=== PATIENT | female | born 1995 | race Caucasian/White ===

== ENCOUNTER 2023-05-20 11:24 | Outpatient (CLI) | payer OTHER ==
[2023-05-20 12:11] LABS: BASOPHILS # (AUTO) 0.1 10^3/uL (0.0-0.1); BASOPHILS % (AUTO) 0.6 %; EOSINOPHILS % (AUTO) 0.4 %; HCT - HEMATOCRIT 38.3 % (37.0-47.0); HGB - HEMOGLOBIN 12.8 g/dL (12.0-16.0); LYMPHOCYTES # (AUTO) 2.1 10^3/uL (1.5-3.5); MEAN CORPUSCULAR HEMOGLOBIN 30.3 pg (27.0-31.0); MEAN CORPUSCULAR HGB CONC 33.4 g/dL (32.0-36.0); MEAN CORPUSCULAR VOLUME 90.8 fL (81.0-99.0); MEAN PLATELET VOLUME 9.4 fL (7.9-10.8); MONOCYTES # (AUTO) 0.3 10^3/uL (0.0-1.0); MONOCYTES % (AUTO) 3.8 %; NEUTROPHILS # (AUTO) 5.8 10^3/uL (1.5-6.6); NEUTROPHILS % (AUTO) 70.1 %; PLT - PLATELET COUNT 289 10^3/uL (130-450); RED BLOOD COUNT 4.22 10^6/uL (4.20-5.40); RED CELL DISTRIBUTION WIDTH 11.7 % (12.0-15.0); WHITE BLOOD COUNT 8.3 x10^3/uL (4.8-10.8)
[2023-05-21 04:19] LABS: HBsAG SCREEN Negative (Negative)
[2023-05-21 06:12] LABS: RPR Non Reactive (Non Reactive)
[2023-05-21 08:10] LABS: HCV AB Non Reactive (Non Reactive)
[2023-05-21 09:10] LABS: HIV SCREEN 4TH GENERATION Non Reactive (Non Reactive)
[2023-05-21 12:09] LABS: VARICELLA-ZOSTER AB IGG 813 index (Immune >165)
== END 2023-05-20 11:25 | disposition home or self-care (01) ==
LOC: LAB 11:24
PROVIDERS: ATTEND Nurse Practitioner Obstetrics & Gynecology
DX: Z36.89 Encounter for other specified antenatal screening (principal)
CPT/HCPCS: 36415; 85025; 86592; 86762; 86787; 86803; 86850; 86900; 86901; 87340; 87389

== ENCOUNTER 2023-08-06 16:51 | Outpatient (CLI) | payer OTHER ==
--- NOTE | 2023-08-07 16:18 | Ultrasound Report ---
PROCEDURE: OB Anatomy Scan INDICATIONS: SUPERVISION OF OUTSIDE/PRIOR DATING DATA: Last menstrual period (LMP): 03/20/2023. LMP-based estimated date of delivery (ZOHAIB): 12/25/2023. First dating scan (date and location): 05/20/2023. Estimated date of delivery (ZOHAIB) from first dating scan: 12/28/2023. The below data below was generated using the working ZOHAIB of 12/25/2023 TECHNIQUE: Ultrasound of the gravid uterus was performed and recorded. COMPARISON: None. FINDINGS: General: A single live intrauterine gestation is present. Presentation: Variable Placenta: Placental position is posterior without previa. Amniotic fluid index: 10.2 cm, within normal limits for gestational age. heart rate: 152 beats per minute. Maternal cervical canal: 7.9 cm long; normal length is 2.5 cm or more. biometrics: Biparietal diameter: 4.37 cm, 19 week 2 day, 23.7 percentile Head circumference: 17.5 cm, 20 week 0 day, 49.9 percentile Abdominal circumference: 16.5 cm, 21 week 4 day, 91.7 percentile Femur length: 3.1 cm, 19 week 4 day, 32.1 percentile Estimated gestational age by working dates: not applicable. Composite gestational age by current ultrasound: 19 week 5 day Estimated weight and percentile: 362.3 g, 83.7 percentile Measurement variability in biometric dating: +/- 10 days from 12-20 weeks gestation, +/- 2 weeks from 20-30 weeks gestation, +/- 3 weeks at 30 weeks gestation or more. Anatomic survey: Neuro: Ventricles are non-dilated at less than 10 mm. Cisterna magna is normal at 3-11 mm. Cerebel lum is normal in size and morphology. Nuchal skin fold: Normal at less than 6 mm between 14-20 weeks gestational age. Face: Nose and lips, facial profile are normal. Spine: No evidence for spina bifida. Heart: 4-chambered heart is present, with normal ventricular outflow tracts. Diaphragm: Diaphragm is intact. Stomach: Left-sided stomach is present. Kidneys: No hydronephrosis. Normal is less than 5 mm in 2nd trimester, less than 7 mm in 3rd trimester. Cord: 3-vessel cord has orthotopic insertion. Bladder: Normal in size. Extremities: All 4 extremities identified. Other: Not applicable. IMPRESSION: Single live intrauterine consistent with 19 week 5 day gestation by current ultrasound Reviewed by: Saulo Valente MD on 08/07/2023 3:16 PM KAREL Approved by: Saulo Valente MD on 08/07/2023 3:16 PM KAREL Station ID: [id number]
== END 2023-08-06 16:52 | disposition home or self-care (01) ==
LOC: DI 16:51
PROVIDERS: ATTEND Nurse Practitioner Obstetrics & Gynecology
DX: Z34.92 Encounter for supervision of normal pregnancy, unspecified, second trimester (principal)

== ENCOUNTER 2023-09-24 08:13 | Outpatient (CLI) | payer OTHER ==
[2023-09-24 09:33] LABS: HGB - HEMOGLOBIN 12.3 g/dL (12.0-16.0); MEAN CORPUSCULAR HEMOGLOBIN 30.8 pg (27.0-31.0); MEAN CORPUSCULAR HGB CONC 33.2 g/dL (32.0-36.0); MEAN CORPUSCULAR VOLUME 92.7 fL (81.0-99.0); MEAN PLATELET VOLUME 9.2 fL (7.9-10.8); RED BLOOD COUNT 3.99 10^6/uL (4.20-5.40); RED CELL DISTRIBUTION WIDTH 12.3 % (12.0-15.0); WHITE BLOOD COUNT 9.3 x10^3/uL (4.8-10.8)
== END 2023-09-24 08:14 | disposition home or self-care (01) ==
LOC: LAB 08:13
PROVIDERS: ATTEND Nurse Practitioner Obstetrics & Gynecology
DX: Z36.9 Encounter for antenatal screening, unspecified (principal)
CPT/HCPCS: 36415; 82950; 85027

== ENCOUNTER 2023-12-25 06:18 | Outpatient (CLI) | payer OTHER ==
[2023-12-25 06:46] VITALS: BP 126/82
--- NOTE | 2023-12-25 09:33 | PROVIDER PROGRESS NOTE ---
- HPI Chief Complaint: Labor Check Current : Current EDU 12/25/23 Gestation 40 Weeks and 0 Days 2 Para 1 Vital Signs Temperature 97.7 F 12/25/23 06:25 Heart Rate 85 12/25/23 06:25 Respiratory Rate 16 12/25/23 06:25 Blood Pressure 126/82 H 12/25/23 06:25 Temperature 97.7 F 12/25/23 06:31 Heart Rate 85 12/25/23 06:25 Respiratory Rate 16 12/25/23 06:25 Blood Pressure 126/82 H 12/25/23 06:25 O2 Saturation If not protocol: Oxygen Flow, liters/minute - Exam 3cm/ 50% - Procedures NST Procedure: NST Procedure Start Date 12/25/23 Start Time 06:26 Stop Time 07:03 Vibroacoustic Stimulation Used No Patient States Movement Yes: NST was done on noc shift, pt agrees with above. Here for R/O labor. - Plan Plan: 28 yo presented to L&D at 40+0 weeks gestation for labor check. She had started quita regularity in the this morning at 0100 and came into L&D approximately 0630. Cervical exam essentially unchanged from last exam in clinic (previously 3cm/50%), quita every 3-7 minutes, 40-70 seconds. Discussed management options. She preferred to ambulate and reassess for any changes in 1 hour. At the one hour anabella, she felt that her contractions hadn't increased in intensity or frequency and she preferred to labor more at home. Return precautions reviewed.
== END 2023-12-25 07:45 | disposition home or self-care (01) ==
LOC: WFO 06:18 → FBP 06:21 → WFO 07:45
PROVIDERS: ATTEND Nurse Practitioner Obstetrics & Gynecology
DX: O48.0 Post-term pregnancy (principal); Z3A.40 40 weeks gestation of pregnancy
CPT/HCPCS: 59025; 99213

== ENCOUNTER 2023-12-25 11:59 | Inpatient (IN) | payer OTHER ==
[2023-12-25] MEDS ORDERED: SODIUM CHLORIDE FLUSH 0.9% 10 ML SYRINGE IVP PRN (12:15)
[2023-12-25] MEDS ORDERED: TERBUTALINE 1 MG/ML VIAL SUBQ PRN (12:15)
[2023-12-25] MEDS ORDERED: miSOPROStoL 200 MCG TABLET PR PRN (12:15)
[2023-12-25] MEDS ORDERED: lidocaine 1% 20 ML MDV ID PRN (12:15)
[2023-12-25] MEDS ORDERED: OXYTOCIN 10 UNIT/ML VIAL IM PRN (12:15)
[2023-12-25] MEDS ORDERED: METHYLERGONOVINE 0.2 MG/ML VIAL IM PRN (12:15)
[2023-12-25] MEDS ORDERED: TRANEXAMIC ACID IN NACL 1,000 MG/100 ML BAG IV PRN (12:15)
[2023-12-25] MEDS ORDERED: miSOPROStoL 200 MCG TABLET BC PRN (12:15)
[2023-12-25] MEDS ORDERED: CARBOPROST TROMETHAMINE 250 MCG/ML VIAL IM PRN (12:15)
--- NOTE | 2023-12-25 12:24 | HISTORY & PHYSICAL EXAMINATION ---
Admit History - Visit Reason Visit Reason: Contractions - : 2 Parity: 1 Premature: 0 Ectopic: 1 : 0 Care: positive: [facility] Risk/History: positive: None Complications This : positive: None - Mother's Labs GBS: positive: Group B Step Negative - Other Maternal History Other Maternal History: HPI: This 28 yo @ 40+0 weeks by LMP and confirmed by 8+5 week ultrasound presented to [facility] for labor triage. She was evaluated on LD approximately 4 hours ago and her cervical exam was essentially unchanged from clinic a few days ago. Her contractions started to get stronger about 0100. Upon her return to [facility] this afternoon, her cervix was 4/70/-2 and vertex with intact membranes. We reviewed management options at length and patient desires admission and expectant management. She has been a patient of [facility] for the duration of her which has remained uncomplicated. No headache, visual changes or right upper quadrant abdominal pain. Denies significant N/V. Denies urinary urgency or dysuria. In the event of an emergency, accepts the administration of blood products. LMP: 03/20/2023 ZOHAIB by LMP: 12/25/2023 05/20/2023/ @ 8+5 C/W dates Final ZOHAIB: 12/25/2023 Serial exams agree ROS: All other symptoms reviewed and were negative except per HPI. Immunization history: Has received COVID vaccine: x 2. Has not received influenza vaccine (Feb - August). Prior history of a blood transfusion? No. 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 SAB x0. Last pap 02/2023 WNL, no hx abnormal. Denies history of gonorrhea, chlamydia, genital herpes, oral herpes or any other STI. Sexual partner does NOT have HSV (oral or genital). Medical Hx: no significant Surgical Hx: none Social Hx: Monogamous with male partner. Stopped drinking alcohol due to . Denies current use of tobacco, marijuana or other recreational drugs. Reports that she is safe in current relationship. Family Hx: Denies family history of congenital anomalies, Cystic Fibrosis or chromosomal abnormalities. Allergies: NKDA Medications: vitamin Objective: Pre- BMI: 23 Course: Blood Type: A Positive Antibody Screen Negative Rubella Immune Treponema/RPR Non-Reactive Hep B Surface Ag Non-Reactive Hep C Virus Ab Non-Reactive HIV-1/HIV-2 Screen Non-Reactive Varicella AB Screen Immune Gonorrhea: NOT DETECTED Chlamydia: NOT DETECTED Group B Strep Negative Physical exam: Normocephalic, atraumatic Heart RRR w/o M/G/R Lungs CTAB Abdomen gravid, soft, nontender. EFW 3700 FHR baseline 130-140, moderate variability, + accelerations, no decelerations Contractions palpate moderate every 2-5 minutes with soft resting tone SVE 4/70/-2, vertex, membranes intact Bilateral LE's no edema Mood is good. Assessment: 28 yo @ 40 weeks gestation by sure LMP and 8+5 wk U/S Early labor FHR 130-140 Cat 1 GBS NEG Plan: Admit to [facility] for expectant management Intermittent heart rate auscultation, transition to continuos monitoring as indicated. Jacuzzi PRN. Nitrous oxide PRN. Epidural PRN Maternal Request. Anticipate . Patient verbally consents to my participation in her care in my role as a student nurse healthcare manager. LUIZ Balbuena, Student Nurse Urban Forester - NST Procedure NST Procedure Start Time 06:26 Stop Time 07:03 Meds/Allgy - Home Medications Home Medications: Ambulatory Orders Medication Instructions Recorded Confirmed Vit No.129/Iron/Folic 1 tab PO DAILY 12/25/23 12/25/23 [ One Daily Tablet] Physical - Monitoring Heart Rate Baseline: 135 Strip Review: positive: Category I - Presentation Presentation: positive: Vertex - Vaginal Exam Membranes: positive: Membranes intact Dilation (in cm): 4 Effacement (%): 70 Station: positive: -2 - Speculum Exam Speculum Exam Performed: positive: No Plan for Labor - Plan For Labor I expect patient to be DC'd or transferred within 96 hours.: Yes
[2023-12-25 12:29] LABS: BASOPHILS # (AUTO) 0.1 10^3/uL (0.0-0.1); BASOPHILS % (AUTO) 0.3 %; EOSINOPHILS % (AUTO) 0.1 %; HCT - HEMATOCRIT 39.5 % (37.0-47.0); HGB - HEMOGLOBIN 12.9 g/dL (12.0-16.0); LYMPHOCYTES # (AUTO) 1.4 10^3/uL (1.5-3.5); LYMPHOCYTES % (AUTO) 8.9 %; MEAN CORPUSCULAR HEMOGLOBIN 30.3 pg (27.0-31.0); MEAN CORPUSCULAR HGB CONC 32.7 g/dL (32.0-36.0); MEAN CORPUSCULAR VOLUME 92.7 fL (81.0-99.0); MEAN PLATELET VOLUME 10.1 fL (7.9-10.8); MONOCYTES # (AUTO) 0.5 10^3/uL (0.0-1.0); MONOCYTES % (AUTO) 3.5 %; NEUTROPHILS # (AUTO) 13.3 10^3/uL (1.5-6.6); PLT - PLATELET COUNT 219 10^3/uL (130-450); RED BLOOD COUNT 4.26 10^6/uL (4.20-5.40); RED CELL DISTRIBUTION WIDTH 12.9 % (12.0-15.0); WHITE BLOOD COUNT 15.4 x10^3/uL (4.8-10.8)
[2023-12-25] MEDS: ONDANSETRON 4 MG/2 ML VIAL IVP PRN (12:35)
--- NOTE | 2023-12-25 13:40 | PHARMACY PROGRESS NOTE ---
- Best Possible Medication History Admit Date and Time: 12/25/23 1215 Processed by: Pharmacy Medication History completed: Yes Patient Interview: Completed Secondary Source(s): Insurance records (PT STATES NO RX HOME MEDS) As the person ultimately responsible for medication therapy, providers are able to order a medication from an existing home medication list in [facility] via the "Reconcile Routine" prior to Confirmation of that medication by claims support specialist. Such practice is discouraged except when the physician, in their clinical judgment, deems that a medical need exists for a medication without regard to previous use.
[2023-12-25] MEDS: METOCLOPRAMIDE 10 MG/2 ML VIAL IVP PRN (14:34)
[2023-12-25] MEDS: LACTATED RINGERS 1,000 ML IV PRN (14:50)
[2023-12-25] MEDS ORDERED: ROPIVACAINE 0.2% 200 MG/100 ML BAG EP ONE (15:10)
[2023-12-25] MEDS ORDERED: LIDOCAINE 2%-EPI 1:100000 20 ML MDV ONE (15:10)
--- NOTE | 2023-12-25 16:14 | PROVIDER PROGRESS NOTE ---
Labor Progress Note - Uterine Monitoring Uterine Monitoring Mode: positive: External toco Contraction Frequency (min/apart): q2 Contraction Intensity: positive: Strong Uterine Resting Tone: positive: Soft - Monitoring Monitor Mode: positive: External ultrasound Heart Rate Baseline: 150 Accelerations: positive: Present, 15x15 Decelerations: positive: None Strip Review: positive: Category I - Vaginal Exam Dilation (in cm): 8 Effacement (%): 90 Station: -2 Cervical Position: Anterior - Labor Progress Note Labor Progress Note/Additional Text: S: Contractions stronger and closer together. Nitrous gave limited relief. Comfortable after epidural. Her is supportive at the bedside. O: FHR 150, no audible decelerations noted on doppler SVE 8/-2, vertex. A: 28yo @ 40 wks gestation by 8+5 wk U/S Active labor GBS negative P: Discussed management options. Mi desired AROM vs expectant management. AROM, large amount of clear fluid. Maintain epidural for pain management Will encouraged rotation in bed on peanut ball Anticipate . LUIZ Balbuena, Student Nurse Swimming Teacher
--- NOTE | 2023-12-25 16:16 | ANESTHESIA ---
Pre-Anesthesia VS, & Labs - Diagnosis 40/0 weeks, desires labor epidural - Procedure placement of labor epidural Vital Signs: Temp Pulse Resp BP Pulse Ox O2 Flow Rate 36.9 C 99 16 123/82 H 12/25/23 12:20 12/25/23 12:20 12/25/23 12:20 12/25/23 12:20 Height: 5 ft 4 in Weight (kg): 72.575 kg Body Mass Index: 27.4 BMI Classification: Overweight - NPO Last Fluid Intake: currently clears - Is Patient ?: Yes - Lab Results Current Lab Results: Laboratory Tests 12/25/23 12:19: WBC 15.4 H, RBC 4.26, Hgb 12.9, Hct 39.5, MCV 92.7, MCH 30.3, MCHC 32.7, RDW 12.9, Plt Count 219, MPV 10.1, Neut # (Auto) 13.3 H, Lymph # ( Auto) 1.4 L, Cass # (Auto) 0.5, Eos # (Auto) 0.0, Baso # (Auto) 0.1, Absolute Nucleated RBC 0.00, Nucleated RBC % 0.0 12/25/23 12:19: Blood Type A POSITIVE, Antibody Screen NEGATIVE 12/25/23 12:19: TSH 3.03 Lab results reviewed: Yes Fish Bones: 12/25/23 12:19 Home Medications and Allergies Home Medications: Ambulatory Orders Vit No.129/Iron/Folic [ One Daily Tablet] 1 tab PO DAILY 12/25/23 Active Medications Acetaminophen (Acetaminophen 500 Mg Tablet) 1,000 mg PO Q8H PRN PRN Reason: Mild Pain or Fever>38C(100.4F) Carboprost Tromethamine (Carboprost Tromethamine 250 Mcg/Ml Vial) 250 mcg IM .ONCE PRN PRN Reason: Hemorrhage Lactated Ringer's (Lr) 500 mls @ 999 mls/hr IV PRN PRN PRN Reason: maternal or distress Last Admin: 12/25/23 14:50 Dose: 999 mls/hr Oxytocin/Sodium Chloride (Pitocin/Sodium Chloride) 500 mls @ 999 mls/hr IV PRN PRN; Protocol PRN Reason: POST- HEMORR PREVENTION Tranexamic Acid (Tranexamic 1,000 Mg/100ml-Nacl) 1,000 mg in 100 mls @ 600 mls/ hr IV Q30M PRN PRN Reason: EBL >1200mL and within 3hr Lidocaine HCl (Lidocaine 1% 20 Ml Mdv) 20 ml ID .ONCE PRN PRN Reason: PERINEAL REPAIR Stop: 12/28/23 12:15 Methylergonovine Maleate (Methylergonovine 0.2 Mg/Ml Vial) 0.2 mg IM .ONCE PRN PRN Reason: Hemorrhage Metoclopramide HCl (Metoclopramide 10 Mg/2 Ml Vial) 5 mg IVP Q6HR PRN PRN Reason: Nausea / Vomiting Last Admin: 12/25/23 14:34 Dose: 5 mg Misoprostol (Misoprostol 200 Mcg Tablet) 600 mcg BC .ONCE PRN PRN Reason: Hemorrhage Misoprostol (Misoprostol 200 Mcg Tablet) 800 mcg NV .ONCE PRN PRN Reason: Hemorrhage Ondansetron HCl (Ondansetron 4 Mg/2 Ml Vial) 4 mg IVP Q6HR PRN PRN Reason: Nausea / Vomiting Last Admin: 12/25/23 12:35 Dose: 4 mg Oxytocin (Oxytocin 10 Unit/Ml Vial) 10 unit IM .ONCE PRN PRN Reason: Step One if no IV access. Sodium Chloride (Sodium Chloride Flush 0.9% 10 Ml Syringe) 10 ml IVP PRN PRN PRN Reason: NEEDED PER PROVIDER ORDERS Sodium Chloride (Sodium Chloride Flush 0.9% 10 Ml Syringe) 10 ml IVP Q8H MIRIAM Terbutaline Sulfate (Terbutaline 1 Mg/Ml Vial) 0.25 mg SUBQ .ONCE PRN PRN Reason: Tachystole Vit No.129/Iron/Folic [ One Daily Tablet] 1 tab PO DAILY 12/25/23 Anes History & Medical History - Anesthetic History Anesthesia Complications: reports: No previous complications - Medical History Cardiovascular: reports: None Pulmonary: reports: None Gastrointestinal: reports: None Urinary: reports: None Neuro: reports: None Musculoskeletal: reports: None Endocrine/Autoimmune: reports: None Blood Disorders: reports: None Smoking Status: Never smoker Psychosocial: reports: No issues indicated - Obstetrical History : 2 Parity: 1 Events: reports: None Complications: reports: None Exam General: Alert, Oriented x3 Dental: WNL Mouth Openin Fingerbreadth Neck Mobility: Normal Mallampati classification: II Thyromental Distance: 4-6 cm Respiratory: Lungs clear Cardiovascular: Regular rate Plan Anesthesia Type: Epidural Consent for Procedure(s) Verified and Reviewed: Yes Code Status: Attempt Resuscitation ASA classification: 1-Healthy patient Is this case an emergency?: No
[2023-12-25] MEDS ORDERED: ONDANSETRON 4 MG/2 ML VIAL IVP PRN (16:17)
[2023-12-25] MEDS ORDERED: diphenhydrAMINE INJ 50 MG/ML VIAL IVP PRN (16:17)
[2023-12-25] MEDS ORDERED: ROPIVACAINE 0.2% 200 MG/100 ML BAG EP PRN (16:17)
[2023-12-25] MEDS ORDERED: NALBUPHINE 10 MG/ML AMP IVP PRN (16:17)
[2023-12-25] MEDS ORDERED: ePHEDrine 50 MG/ML VIAL IVP PRN (16:18)
[2023-12-25] MEDS: OXYTOCIN/SODIUM CHLORIDE 500 ML IV PRN (18:50)
--- NOTE | 2023-12-25 19:35 | DELIVERY NOTE ---
Delivery Note - Labor Labor: positive: Spontaneous, Augmented by ARM - Infant Delivery Method Delivery Method: positive: Spontaneous vaginal delivery - Presentation Presentation: positive: Vertex, LIANA - left occiput anterior - Nuchal Cord Nuchal Cord: positive: Present, Reduced - Anesthetic Anesthetic Type: - Amniotic Fluid Description Amniotic Fluid Description: positive: Clear - Episiotomy Type Episiotomy Type: positive: None - Laceration Laceration: positive: None - Delivery Outcome Delivery Outcome: positive: Livebirth - Peshtigo Peshtigo: positive: Placed in direct skin contact with mother, Suctioned, Bulb syringe, Stimulated, Withee used Peshtigo sex: positive: Male - Cord Cord: positive: 3 vessels - Placenta Placenta: positive: Intact - Estimated Blood Loss Estimated Blood Loss (in cc): 200 - Post Delivery Events Post Delivery Events: positive: Shoulder dystocia - Delivery Comments (Free Text/Narrative) Delivery Comments (Free Text/Narrative): This 28 -year-old, presented to L&D @ 40 weeks gestation by 8+5 week ultrasound and sure LMP presented on 12/25/2023 @ 1245 in early labor and in good condition. Cervix was 4/70/-2 and Vertex presentation by julián's. GBS negative. Expectant management and AROM for augmentation followed. FHR pattern demonstrated 150 baseline and primarily category 1 prior to second stage. Normal labor course. Epidural placed upon maternal request. AROM occurred @ 1601 (clear fluid). She then progressed to complete/complete and second stage began @ 1630. : After reduction of nuchal cord x2, attempted delivery of the head was unsuccessful, despite gentle traction of the head. Shoulder dystocia was announced and asked for Rogelio position, Superpubic pressure, and attempted rotational maneuvers and removal of posterior shoulder. After assessing the patient and attempting rotational maneuvers, the anterior shoulder had already been rotated out of impaction, but the large body was not delivering with gentle traction. I was able to place my fingers under the posterior axilla and deliver the posterior shoulder with gentle traction. The rest of the body delivered thereafter and was placed on mother's chest where he was stimulated and responded well. Delivery of viable male 12/25/23 @1843. On exam, he had movement of bilateral upper extremities. We discussed the shoulder dystocia with the family. In total 100 seconds elapse for delivery of head to delivery of body including reduction of double nuchal cord and resolution of shoulder dystocia. Apgars 5 & 8 @ 1 & 5 minutes. The umbilical cord was allowed to stop pulsating at which time it was doubly clamped by delivering provider and cut by FOB. 3VC. Cord blood was obtained. Fundal massage and gently cord traction applied for active management of the third stage, placenta delivered spontaneously and intact and appeared normal @ 1850. EBL 200. Placenta was WAS NOT sent to pathology. 30U Pitocin administered via IV for hemostasis and added to the IV fluid and allowed to run freely. Uterine massage was performed until uterus was deemed firm. Inspection of perineum and vagina found intact tissue. No repair. Needle and sponge counts were correct. Uterine fundus firm and there is no excessive bleeding. Tissues well approximated. Family bonding well. Both mother and baby are in stable condition. Patient verbalized consent for my participation in her delivery in my role as Student Nurse Parts Salesman. LUIZ Balbuena, Student Nurse Parts Salesman
[2023-12-25] MEDS: SODIUM CHLORIDE FLUSH 0.9% 10 ML SYRINGE IVP SCH (20:56)
[2023-12-26] MEDS: ACETAMINOPHEN 500 MG TABLET PO PRN (01:11)
[2023-12-26] MEDS: IBUPROFEN 800 MG TABLET PO SCH (01:11)
[2023-12-26] MEDS: HYDROCORTISONE 1% CREAM 28 GM TUBE PR PRN (09:13)
[2023-12-26] MEDS: DOCUSATE SODIUM 100 MG CAPSULE PO SCH (09:13)
[2023-12-26] MEDS: WITCH HAZEL/GLYCERIN 1 PAD TOP PRN (09:14)
--- NOTE | 2023-12-26 09:59 | DISCHARGE SUMMARY ---
Discharge Summary Discharging Provider: LAMBERT Roberto Code Status: Attempt Resuscitation Condition at Discharge: Good Discharge Disposition: 01 Home, Self Care - HOSPITAL COURSE Hospital Course: Date of Admission: 12/25/2023 Date of Discharge: 12/26/2023 Diagnosis on admission: 1. 28 yo @ 40 weeks gestation by sure LMP and confirmed by 8+5 week ultrasound 2. GBS negative Diagnosis on Discharge 1. 28 yo s/p @ 40 weeks gestation viable male . 2. Intact perineum 3. Exclusively Brief History: [facility] who presented on 12/25/2023 with complaints of contractions. She was found to be quita regularly and quickly progressed with only AROM for augmentation. Epidural for pain management. Delivery complicated by 100 second shoulder dystocia. She delivered a viable make infant apgars 5 and 8 at 1 and 5 minutes respectively. EBL 200 ml. intact perineum. weight: 3632g. She has been doing well in her course. She is ambulating and tolerating a regular diet. She is urinating without difficulty and her lochia is normal. Her pain is well controlled without narcotic management. She will be discharged to home today on day 1 and encouraged IBU, Tylenol and stool softeners PRN. She [facility] for [facility]health. She has been given precautions to call if she has any new or worsening sx such as fevers, chills, abdominal pain, increasing bleeding, or foul smelling vaginal lochia. preeclamptic precautions reviewed as well. VZV: Immune Rubella: Immune Blood type: A positive LUIZ Balbuena, Student Nurse Psychiatric Secretary - ALLERGIES Allergies/Adverse Reactions: Allergies Allergy/AdvReac Type Severity Reaction Status Date / Time No Known Allergies Allergy Unknown Verified 12/25/23 17:04 - MEDICATIONS Home Medications: Ambulatory Orders Medication Instructions Recorded Confirmed Vit No.129/Iron/Folic 1 tab PO DAILY 12/25/23 12/25/23 [ One Daily Tablet] - PHYSICAL EXAM AT DISCHARGE General Appearance: positive: No acute distress Eyes Bilateral: positive: Normal inspection Cardiovascular: positive: Regular rate & rhythm Peripheral Pulses: positive: 2+ Abdomen: positive: Non-tender, Other (FF below U) Skin: positive: Color nml - LABS Result Diagrams: 12/25/23 12:19 - QUALITY (Female Hip Fx Only) Was patient sent home on osteoporosis medication?: No - FOLLOW UP Follow Up: LAMBERT Roberto by telehealth next week. - TIME SPENT Time Spent in Discharge (Minutes): 20
--- NOTE | 2023-12-26 10:01 | Discharge Plan ---
Discharge Plan Problem Reviewed?: Yes Disposition: Home, Self Care Condition: Good Diet: Regular Activity Restrictions: No Restrictions Shower Restrictions: No Driving Restrictions: No Instruction Topics: Breastfeed Holds, Nutrition , Self Care, Vaginal No Smoking: If you smoke, Please STOP! Call for help. Follow-up with: Ivette Roberto CNM, ARNP [Provider Admit Priv/Credential] -
[2023-12-26 19:46] VITALS: BP 107/71; O2SAT 98
--- NOTE | 2023-12-26 20:09 | Labor Flowsheet ---
Labor Flowsheet Datetime Report Generated by CPN: 12/26/2023 20:08 Datetime: 12/26/2023 19:32 VITAL SIGNS NBP Sys/Christianne/Mean (mmHg): 105 : 58 : 69 Pulse: 71 Datetime: 12/25/2023 19:35 Membranes Ruptured Date/Time: 12/25/2023 16:01 Datetime: 12/25/2023 19:30 Stage of : Temperature (C): 36.7 Temperature Route: Oral PAIN Pain Scale: 0 Pain Presence: None/Denies Datetime: 12/25/2023 18:50 Stage 2 Comments: placenta Datetime: 12/25/2023 18:45 LaborFlag: Labor Datetime: 12/25/2023 18:39 Pushing Position: Pushing Right Side Datetime: 12/25/2023 18:30 Patient Care Comments: Luong removed for 40mL urine STAGE 2 Pushing: Coached on Pushing; Urge to Push Pushing Progress: Descent with Pushing Datetime: 12/25/2023 18:27 VAGINAL EXAM Dilatation (cm): 9.5 Exam by: KLizette, NURSING SUPPORT WORKER Datetime: 12/25/2023 18:15 COMMUNICATION Communication: RN Reviewed Strip Datetime: 12/25/2023 18:00 Frequency (min): 2-3 Duration (sec): 80-100 Pattern: Normal: <= 5 Contractions in 10 Minutes ASSESSMENT A Monitor Mode: Telemetry FHR Baseline Rate : 140 Variability: Moderate 6-25 bpm Accelerations: None Decelerations: Variable Category: Category II Datetime: 12/25/2023 17:30 UTERINE ACTIVITY Monitor Mode: External Quality: Strong Resting Tone (Palpate): Relaxed Datetime: 12/25/2023 17:15 SpO2 (%): 99 Datetime: 12/25/2023 17:13 Effacement (%): 100 Station: 1 Datetime: 12/25/2023 16:30 Contraction Comments: coupling MEDICATIONS Medication Comments: 200ml LR bolus completed Datetime: 12/25/2023 16:26 Patient Position/Activity: Right Lateral Datetime: 12/25/2023 16:01 Membrane Status: Ruptured Membranes Rupture Method: Artificial Amniotic Fluid Color: Clear Amniotic Fluid Amount: Large Amniotic Fluid Odor: Normal Datetime: 12/25/2023 15:34 Epidural Procedure: Test Dose Datetime: 12/25/2023 15:30 Comments: unable to determine Datetime: 12/25/2023 15:15 PROCEDURE TIME OUT Procedure Verify: Correct Patient Identity; Correct Side and Site are Marked; Accurate Procedure Co nsent Form; Agreement on Procedure to be Done; Correct Patient Position; Relevant Images and Results are Properly Labeled and Displayed; Addressed Need to Administer Antibiotics or Fluids for Irrigation ; Safety Precautions Based on Patient History or Medication Use ANESTHESIA Anesthesia Plans: Epidural Epidural Positioning: Sitting Datetime: 12/25/2023 15:00 FHR Baseline Changes: Tachycardia Datetime: 12/25/2023 14:46 Communication Comments: S. Montogmery, SOLUTIONS ARCHITECT coming to place epidural. Datetime: 12/25/2023 14:45 Pain Assessment Comments: Patient requesting epidural at this time. PATIENT CARE IV/Blood Work: IV Bolus Started Datetime: 12/25/2023 14:18 Pain Type: Contraction Pain Location: Abdomen; Back Pain Coping: Breathing Through Contractions Datetime: 12/25/2023 07:02 Provider Notified (Name): Felisa Datetime: 12/25/2023 06:26 Monitor Interventions for UA: [place] Adjusted Monitor Interventions for FHR: Ultrasound Adjusted
== END 2023-12-26 20:00 | disposition home or self-care (01) | DRG 807 ==
LOC: WFO 11:59 → FBP 12:00 → WFO 12:14 → FBP 12:15
PROVIDERS: ADMIT Nurse Practitioner Obstetrics & Gynecology; ATTEND Nurse Practitioner Obstetrics & Gynecology
PROC: 10907ZC Drainage of Amniotic Fluid, Therapeutic from Products of Conception, Via Natural or Artificial Opening (ICD-10-PCS; principal; 2023-12-25)
PROC: 10E0XZZ Delivery of Products of Conception, External Approach (ICD-10-PCS; 2023-12-25)
DX: O66.0 Obstructed labor due to shoulder dystocia (principal); Z37.0 Single live birth; O69.81X0 Labor and delivery complicated by cord around neck, without compression, not applicable or unspecified; Z3A.40 40 weeks gestation of pregnancy
CPT/HCPCS: 36415; 59025; 59409; 84443; 85025; 86850; 86900; 86901; 99213; A9270; J2765; J7120